=== PATIENT | male | born 1950 | race Caucasian/White ===

== ENCOUNTER 2017-08-11 09:48 | Inpatient (IN) | payer OTHER, MEDICARE, SELFPAY ==
[2017-08-11] VITALS (20 sets, daily range): BP systolic 119–157; BP diastolic 45–83; PULSE 94–104; RESP 14–36; TEMP 35.7–36.7; O2SAT 92–98; BMI 27.3; BMI 26.2
--- NOTE | 2017-08-11 09:52 | RAD_ITS ---
STUDY: X-RAY CHEST REASON FOR EXAM: Male, 67 years old. Cough TECHNIQUE: Single AP portable view of the chest. COMPARISON: None. FINDINGS: There are interstitial fibrotic changes of the lungs. There is no demonstrated pleural abnormality. Normal size heart. Normal mediastinum and lara. Normal visualized pulmonary arteries. Normal visualized aortic arch and descending thoracic aorta. Normal visualized thoracic spine. Normal visualized ribs, clavicles, and shoulders. There is no demonstrated abnormality of the visualized soft tissue structures of the upper abdomen. RAD/Chest 1 View (Portable) IMPRESSION: Chronic interstitial changes, no superimposed acute pulmonary process Electronically Signed: Karel Hook MD at 11:18 EST , Service support ,
--- NOTE | 2017-08-11 09:52 | EKG12_ITS ---
Test Reason : ALTERED LOC Blood Pressure : / mmHG Vent. Rate : 101 BPM Atrial Rate : 101 BPM P-R Int : 140 ms QRS Dur : 098 ms QT Int : 358 ms P-R-T Axes : 052 038 201 degrees QTc Int : [address] & T wave abnormality, consider inferolateral ischemia Abnormal ECG Reconfirmed by KARLENE HALL, VIRGINIA ([id number]), editor newspaper KENDRA MONTEMAYOR ([id number]) on 08/19/2017 12:49:09 PM Referred By: CONY Confirmed By:VIRGINIA SOLER MD
--- NOTE | 2017-08-11 09:57 | ED.VISSUMM ---
- ER Visit Summary Date of Service: 08/11/17 Chief Complaint: Confusion, elevated blood sugar History of Present Illness: The patient is a 67 M since to the emergency department with elevated blood sugar. Patient symptoms began about 48 hours ago. states that his sugars been running in the 500s. She states that today he was still 500 but he was more confused than usual. The patient has been tachypneic. He has been a little more sluggish to respond, but he is able to understand and comprehend speech. The states this is similar to when he has had diabetic ketoacidosis before. The patient did take his morning Lantus. His repeat blood sugar was 300 by squad. He did have a low-grade fever on Saturday, but no other infectious symptoms. There has been no recent changes in his dose of medications. The patient currently denies any pain. Physical Examination: Afebrile, tachypneic, otherwise vitals unremarkable. Elderly male in no acute distress. Have resting tachypnea. The patient does answer questions appropriately. He does appear to be dehydrated. Head is normocephalic, atraumatic. Pupils are equal round reactive. Extraocular muscles are intact. Neck is supple. Heart is regular rate and rhythm. Lungs are clear. Abdomen soft, nontender, nondistended. Skin shows no rash. Neuro exam is placed no focal deficits. Test Results: Sugar at bedside was greater than 500. EKG shows sinus rhythm with some nonspecific ST changes in the lateral leads. Chest x-ray unremarkable. Screening labs do show significant hyperglycemia, anion gap, acute kidney injury, and serum ketones Emergency Department Course and Treatment: Patient does have evidence of acute DKA. His blood gas does show acidemia and decreased bicarb. He does have respiratory compensation. Patient was given multiple liters of IV fluid. His screening labs do show contraction of the blood lines. He has a decreased bicarb, elevated anion gap, acute kidney injury with uremia. He also has a serum glucose of 1154. With the patient's confusion, acidosis, uremia the patient will be admitted to the ICU. He is aggressively hydrated and started on an insulin drip. Patient was discussed with the hospitalist. Treatment Plan: [] Disposition: Admission Impression: 1. DKA 2. Acute kidney injury 3. Dehydration This note was generated with [employer] software. It may contain incorrect words, spelling, and punctuation that were not noted in review of the chart prior to signing ED Disposition - Plan for ED Patient: Chief Complaint: Hyperglycemia Referrals: Town [facility],Out of [NON-STAFF] -
[2017-08-11 10:11] LABS: Bedside Glucose > 500 mg/dL (70-110)
[2017-08-11] MEDS: 0.9% Normal Saline 1,000 ML 1000 ML IV ×2 (10:15→10:20)
[2017-08-11 10:16] LABS: Allen Test POS; Base Excess -14 mmol/L (-2 to +2); Bicarbonate 12.6 mmol/L (22-26); Blood Gas Specimen Type ART; O2 Delivery Device Room Air; PO2 90 mmHG (75-100); SITE R Radial; SO2 96 % (95-99); Time Given 1006; Total Carbon Dioxide 13 mmol/L; pCO2 26.6 mmHg (35-45); pH 7.29 (7.35-7.45)
[2017-08-11 10:36] LABS: Absolute Lymphocyte Count 1.04 X10^3/ul (0.83-4.51); Absolute Neutrophil Count 9.2 X10^3/uL (2.0-7.7); Basophil# 0.01 X10^3/uL; Basophil% 0.1 % (0-1); Hematocrit 54.8 % (40-54); Hemoglobin 18.9 g/dl (13.0-16.5); Lymphocyte # 1.04 X10^3/ul (4.0); Lymphocyte % 9.5 % (19-41); Mean Corp Hgb Conc 34.5 g/gl (32-36); Mean Corpuscular Volume 89.8 fL (80-94); Mean Platelet Vol. 10.5 fl (6.2-12.0); Monocyte# 0.67 X10^3/uL; Monocyte% 6.1 % (0-10); Neutrophil # 9.19 X10^3/uL (2.7-7.7); Platelet Count 278 K/mm3 (150-450); RBC Distribution Width CV 13.7 % (11.6-14.6); RBC Distribution Width SD 44.6 fl (35.1-43.9); White Blood Count 10.9 K/mm3 (4.4-11.0)
[2017-08-11 10:37] LABS: POSITIVE COUNT NO; POSITIVE DIFFERENTIAL NO; POSITIVE MORPHOLOGY NO
--- NOTE | 2017-08-11 10:41 | ED.RN ---
DR DONNELLY NOTIFIED OF HGB RESULTS
[2017-08-11 10:49] LABS: Bacteria 0 SEEN /hpf (None Seen); Mucous, Urine 0 SEEN /hpf (<or=2+); Red Blood Cells-Urine 0 SEEN /hpf (0-5); Squamous Epithelial Cells - UA 0 SEEN /hpf (0-5); White Blood Cells 0 SEEN /hpf (0-5)
[2017-08-11 10:50] LABS: Color, Urine Yellow (Yellow); Glucose, Dipstick 1000 mg/dl (Normal); Ketone-Dipstick 50 mg/dl (Negative); Leukocyte Esterase-Dipstick Negative /ul (Negative); Nitrite-Dipstick Negative (Negative); Occult Blood-Urine 10 /ul (Negative); Protein-Dipstick Negative (Negative); Urine Bilirubin Dipstick Negative (Negative); Urine Clarity Clear (Clear); Urine Urobilinogen Normal (Normal)
[2017-08-11 11:00] LABS: ALB/GLOB Ratio 1.1 RATIO (0.9-2.4); AST(SGOT) 7 U/L (15-37); Alanine Aminotransfer ALT/SGPT 24 U/L (16-61); Albumin, Serum 4.1 g/dL (3.2-5.0); Alkaline Phosphatase 126 U/L (45-117); Anion Gap 26 (5-15); BUN 76 mg/dL (7-18); BUN/Creat Ratio 26.3 RATIO (10-20); Calcium,Total 10.3 mg/dL (8.5-10.1); Chloride 99 mmol/L (98-107); Creatinine, Serum 2.89 mg/dL (0.70-1.30); EST Glomerular Filtration Rate 23 mL/min (>60); Est Glom Filt Rate - Afr Amer 28 mL/min (>60); Estimated Creatinine Clearance 23.34 ml/min; Globulin 3.9 g/dL (2.2-4.2); Glucose 1154 mg/dL (74-106); Potassium 3.5 mmol/L (3.5-5.1); Sodium Level 140 mmol/L (136-145)
--- NOTE | 2017-08-11 11:01 | ED.RN ---
DR DONNELLY NOTIFIED OF BLOOD GLUCOSE AND LACTIC ACID RESULTS
[2017-08-11] MEDS: Lactated Ringers 1,000 ML 999 ML IV ×2 (11:06→11:24)
--- NOTE | 2017-08-11 11:39 | ED.RN ---
[facility] TO [facility] PT. HE IS UNABLE TO TELL ME IF THEY HAVE OPEN BEDS AT THIS TIME
[2017-08-11 11:55] LABS: Bedside Glucose > 500 mg/dL (70-110)
--- NOTE | 2017-08-11 12:16 | HP.PCM_ITS ---
Problem List (1) Confusion Status: Acute (2) Generalized weakness Status: Acute History of Present Illness Date of Admission: 08/11/17 Chief Complaint: Colitis weakness, nausea, elevated blood sugar The patient is a 67 year old M was seen in the emergency room at [facility] after being brought in with confusion today and a 2 day prior history of nausea, vomiting, and generalized weakness. Patient's family' s checked his blood sugar today and noted it was in the 500 range, patient is a type II diabetic requiring insulin, he is noncompliant with his medical regimen , he gets his medical care at the [facility] and there are no previous records of the patient here at the hospital. Patient is lethargic and confused during my exam, review of systems was unable to be obtained from the patient and information was obtained from the patient's family. Evaluation in the emergency room included labs which were remarkable for a glucose of 1154, creatinine was elevated at 2.89, BUN was elevated at 76, anion gap was elevated at 26, patient had a blood gas on room air drawn, it showed a pH of 7.29, P O2 of 90, PCO2 of 26.6, and a serum acetone level was obtained which was moderate. Patient's vital signs showed a pulse of 99, blood pressure is 125/76 and he was afebrile. Patient's white blood cell count was normal at 10.9, hemoglobin was elevated at 18.9. It was felt that the patient was in DKA with metabolic encephalopathy, IV fluids were administered, patient was placed on insulin drip, and IV insulin was administered. Patient will be admitted to the ICU for further care, again patient's family were present in the room and his medical plan of care was discussed with them. Past Medical History Allergies No Known Allergies Allergy (Verified 08/11/17 09:49) Home Medications: Ambulatory Orders Medication Instructions Recorded Insulin Glargine,Hum.rec.anlog 30 unit SQ DAILY 08/11/17 [Lantus] Surgical History: noncontributory Psychiatric History: No pertinent psych hx Lives: Spouse/ Significant Other Smoking Status: Former smoker Tobacco Use: Non-smoker Alcohol: None Drugs: None - *Family History Maternal History Items: No pertinent history Paternal History Items: Heart Disease Review of Systems Comment: Of systems was unobtainable due to the patient's metabolic encephalopathy and confusion, information was obtained from the patient's family members VTE Information - Inpt Only VTE Present on Admission: No VTE Mechan Device Prophylaxis: None VTE Pharm Prophylaxis ordered?: Yes Patient Problems: Active and Suspected Problems Confusion (Acute) Generalized weakness (Acute) - Physical Exam General: Well developed, Confused, Lethargic HEENT: Atraumatic, PERRLA Oral: Dry Mucosa Neck: Supple, Negative Carotid Bruits, No Nuchal Rigidity, Trachea Midline, Thyroid Normal Size and Texture Lungs: Clear to auscultation, Normal air movement, No rhonchi, No wheeze, No rales Cardiovascular: Regular rate, Regular Rhythm, Normal S1, Normal S2, PMI Normal, Murmur - 2/6 systolic murmur is noted at the apex and right sternal border, No rub noted Abdomen: Bowel Sounds Present, Soft, Non Tender, Non-Distended, No hernias noted Extremities: No clubbing, No cyanosis, No edema, Capillary Refill Less than 3 Seconds Skin: No rashes, No breakdown Neurological: - - he responds to painful stimuli Psych/Mental Status: - - Patient is lethargic, he responds to painful stimuli, he does not verbalize Vital Signs Temp Pulse Resp BP Pulse Ox 96.8 F L 94 30 H 135/83 H 94 08/11/17 09:52 08/11/17 12:01 08/11/17 12:01 08/11/17 12:01 08/11/17 12:01 Oxygen Delivery Method Room Air Weight: 81.7 kg Body Mass Index (BMI) 27.3 Finger Stick Blood Glucose 600 Laboratory Tests Past 24 Hrs 08/11/17 08/11/17 08/11/17 10:00 10:00 10:00 WBC 10.9 RBC 6.10 Hgb 18.9 H* Hct 54.8 H MCV 89.8 MCH 31.0 MCHC 34.5 RDW 13.7 RDW Differential 44.6 H Plt Count 278 MPV 10.5 Immature Gran % (Auto) 0.300 Neut % (Auto) 84.0 H Lymph % (Auto) 9.5 L [place] % (Auto) 6.1 Eos % (Auto) 0.0 Baso % (Auto) 0.1 Absolute Neuts (auto) 9.2 H Absolute Lymphs (auto) 1.04 Total Counted Not Reportable Specimen Type Sample Site pH Bicarbonate Actual POC Total CO2 Base Excess O2 Saturation ABG pCO2 ABG pO2 Delroy Test O2 Delivery Device Blood Gas Notified Whom Blood Gas Notified Time Sodium 140 Potassium 3.5 Chloride 99 Carbon Dioxide 15.0 L Anion Gap 26 H BUN 76 H Creatinine 2.89 H Estim Creat Clear Calc 23.34 Est GFR (MDRD) Af Amer 28 L Est GFR (MDRD) Non-Af 23 L BUN/Creatinine Ratio 26.3 H Glucose 1154 H* Lactic Acid 2.0 Calcium 10.3 H Total Bilirubin 0.60 AST 7 L ALT 24 Alkaline Phosphatase 126 H Troponin I Total Protein 8.0 Albumin 4.1 Globulin 3.9 Albumin/Globulin Ratio 1.1 Urine Color Urine Clarity Urine pH Ur Specific [place] Urine Protein Urine Glucose (UA) Urine Ketones Urine Occult Blood Urine Nitrite Urine Bilirubin Urine Urobilinogen Ur Leukocyte Esterase Urine RBC Urine WBC Ur Squamous Epith Cells Urine Bacteria Urine Mucus Acetone Level 08/11/17 08/11/17 08/11/17 10:00 10:07 10:07 WBC RBC Hgb Hct MCV MCH MCHC RDW RDW Differential Plt Count MPV Immature Gran % (Auto) Neut % (Auto) Lymph % (Auto) [place] % (Auto) Eos % (Auto) Baso % (Auto) Absolute Neuts (auto) Absolute Lymphs (auto) Total Counted Specimen Type ART Sample Site R Radial pH 7.29 L Bicarbonate Actual 12.6 L POC Total CO2 13 Base Excess -14 L O2 Saturation 96 ABG pCO2 26.6 L ABG pO2 90 Delroy Test POS O2 Delivery Device Room Air Blood Gas Notified Whom ED Blood Gas Notified Time 1006 Sodium Potassium Chloride Carbon Dioxide Anion Gap BUN Creatinine Estim Creat Clear Calc Est GFR (MDRD) Af Amer Est GFR (MDRD) Non-Af BUN/Creatinine Ratio Glucose Lactic Acid Calcium Total Bilirubin AST ALT Alkaline Phosphatase Troponin I Pending Total Protein Albumin Globulin Albumin/Globulin Ratio Urine Color Urine Clarity Urine pH Ur Specific [place] Urine Protein Urine Glucose (UA) Urine Ketones Urine Occult Blood Urine Nitrite Urine Bilirubin Urine Urobilinogen Ur Leukocyte Esterase Urine RBC Urine WBC Ur Squamous Epith Cells Urine Bacteria Urine Mucus Acetone Level MODERATE H 08/11/17 10:35 WBC RBC Hgb Hct MCV MCH MCHC RDW RDW Differential Plt Count MPV Immature Gran % (Auto) Neut % (Auto) Lymph % (Auto) [place] % (Auto) Eos % (Auto) Baso % (Auto) Absolute Neuts (auto) Absolute Lymphs (auto) Total Counted Specimen Type Sample Site pH Bicarbonate Actual POC Total CO2 Base Excess O2 Saturation ABG pCO2 ABG pO2 Delroy Test O2 Delivery Device Blood Gas Notified Whom Blood Gas Notified Time Sodium Potassium Chloride Carbon Dioxide Anion Gap BUN Creatinine Estim Creat Clear Calc Est GFR (MDRD) Af Amer Est GFR (MDRD) Non-Af BUN/Creatinine Ratio Glucose Lactic Acid Calcium Total Bilirubin AST ALT Alkaline Phosphatase Troponin I Total Protein Albumin Globulin Albumin/Globulin Ratio Urine Color Yellow Urine Clarity Clear Urine pH 6.0 Ur Specific [place] 1.010 Urine Protein Negative Urine Glucose (UA) 1000 H Urine Ketones 50 H Urine Occult Blood 10 H Urine Nitrite Negative Urine Bilirubin Negative Urine Urobilinogen Normal Ur Leukocyte Esterase Negative Urine RBC 0 SEEN Urine WBC 0 SEEN Ur Squamous Epith Cells 0 SEEN Urine Bacteria 0 SEEN Urine Mucus 0 SEEN Acetone Level POC Glucose 08/11/17 08/11/17 11:37 10:04 POC Glucose > 500 H* > 500 H* Assessment/Plan Active and Suspected Problems Confusion (Acute) Generalized weakness (Acute) #1 DKA with uncontrolled type 2 diabetes-patient will be admitted ICU, he will receive IV fluids and be maintained on an insulin drip, labs will be monitored, critical care will see patient, cardiac enzymes series will be cycled #2 metabolic encephalopathy secondary to #1 #3 noncompliance with medical regimen #4 probable acute kidney injury versus chronic kidney disease-no labs available for comparison, recheck labs #5 diabetic vascular eye disease #6 heart murmur-I feel the patient probably has mitral regurg, echocardiogram will be obtained #7 EKG abnormality indicating probable left ventricular strain pattern-again cardiac enzymes will be cycled and patient will have an echocardiogram Code Visit Inpatient E&M: 34935 Init Hosp L3
[2017-08-11 12:21] LABS: Bedside Glucose > 500 mg/dL (70-110)
[2017-08-11] MEDS: 0.9% Normal Saline 1,000 ML 500 ML IV ×2 (13:15→15:28)
[2017-08-11 13:21] LABS: Bedside Glucose > 500 mg/dL (70-110)
[2017-08-11 13:38] LABS: Anion Gap 20 (5-15); BUN 65 mg/dL (7-18); BUN/Creat Ratio 26.9 RATIO (10-20); Calcium,Total 9.1 mg/dL (8.5-10.1); Chloride 114 mmol/L (98-107); Creatinine, Serum 2.42 mg/dL (0.70-1.30); EST Glomerular Filtration Rate 28 mL/min (>60); Est Glom Filt Rate - Afr Amer 34 mL/min (>60); Estimated Creatinine Clearance 27.87 ml/min; Glucose 728 mg/dL (74-106); Magnesium 3.2 mg/dL (1.6-2.6); Potassium 2.3 mmol/L (3.5-5.1); Sodium Level 151 mmol/L (136-145)
[2017-08-11 14:12] LABS: Reflex Lactate? Y
[2017-08-11 14:31] LABS: Bedside Glucose > 500 mg/dL (70-110)
[2017-08-11 14:36] LABS: M R Staph aureus DNA By PCR Negative (Negative); Probe Check PASS; Specimen Processing Control PASS
[2017-08-11 15:36] LABS: Bedside Glucose > 500 mg/dL (70-110)
[2017-08-11 16:46] LABS: Bedside Glucose 489 mg/dL (70-110)
[2017-08-11] MEDS: 0.9% Normal Saline 1,000 ML 175 ML IV (17:27)
[2017-08-11 17:30] LABS: Lactic Acid 1.2 mmol/L (0.4-2.0)
[2017-08-11 17:37] LABS: Anion Gap 16 (5-15); BUN 53 mg/dL (7-18); BUN/Creat Ratio 28.3 RATIO (10-20); Calcium,Total 8.6 mg/dL (8.5-10.1); Chloride 121 mmol/L (98-107); Creatinine, Serum 1.87 mg/dL (0.70-1.30); EST Glomerular Filtration Rate 38 mL/min (>60); Est Glom Filt Rate - Afr Amer 46 mL/min (>60); Estimated Creatinine Clearance 36.07 ml/min; Glucose 525 mg/dL (74-106); Potassium 3.1 mmol/L (3.5-5.1); Sodium Level 157 mmol/L (136-145)
[2017-08-11 17:46] LABS: Bedside Glucose 425 mg/dL (70-110)
[2017-08-11 18:31] LABS: Bedside Glucose 418 mg/dL (70-110)
[2017-08-11 20:36] LABS: Bedside Glucose 334 mg/dL (70-110)
[2017-08-11 20:36] LABS: Bedside Glucose 408 mg/dL (70-110)
[2017-08-11] MEDS: 0.9% NaCl Peripheral Flush Adult/Peds IV (21:34)
[2017-08-11 22:23] LABS: BUN 41 mg/dL (7-18); Creatinine, Serum 1.49 mg/dL (0.70-1.30); Glucose 334 mg/dL (74-106)
[2017-08-11 22:24] LABS: Anion Gap 11 (5-15); BUN/Creat Ratio 27.5 RATIO (10-20); Calcium,Total 7.8 mg/dL (8.5-10.1); Chloride 128 mmol/L (98-107); EST Glomerular Filtration Rate 50 mL/min (>60); Est Glom Filt Rate - Afr Amer 60 mL/min (>60); Estimated Creatinine Clearance 45.27 ml/min; Potassium 3.3 mmol/L (3.5-5.1); Sodium Level 161 mmol/L (136-145)
[2017-08-11] MEDS: 0.45% Normal Saline 1,000 ML 125 ML IV (22:43)
[2017-08-11 23:37] LABS: Bedside Glucose 363 mg/dL (70-110)
[2017-08-11 23:37] LABS: Bedside Glucose 346 mg/dL (70-110)
[2017-08-12] VITALS (14 sets, daily range): BP systolic 130–172; BP diastolic 58–87; PULSE 98–118; RESP 17–28; TEMP 36.7–37.8; O2SAT 92–94
[2017-08-12 00:36] LABS: Bedside Glucose 277 mg/dL (70-110)
[2017-08-12 00:36] LABS: Bedside Glucose 258 mg/dL (70-110)
[2017-08-12 01:09] LABS: Anion Gap 11 (5-15); BUN 38 mg/dL (7-18); BUN/Creat Ratio 28.4 RATIO (10-20); Calcium,Total 7.8 mg/dL (8.5-10.1); Chloride 122 mmol/L (98-107); Creatinine, Serum 1.34 mg/dL (0.70-1.30); EST Glomerular Filtration Rate 56 mL/min (>60); Est Glom Filt Rate - Afr Amer 68 mL/min (>60); Estimated Creatinine Clearance 50.34 ml/min; Glucose 265 mg/dL (74-106); Potassium 3.3 mmol/L (3.5-5.1); Sodium Level 155 mmol/L (136-145)
[2017-08-12] MEDS: POTASSIUM CHLORIDE IV (01:36)
[2017-08-12] MEDS: DEXTROSE 5% IV (01:36)
[2017-08-12] MEDS: WATER IV (01:36)
[2017-08-12 03:36] LABS: Bedside Glucose 275 mg/dL (70-110)
[2017-08-12 03:36] LABS: Bedside Glucose 244 mg/dL (70-110)
[2017-08-12 03:36] LABS: Bedside Glucose 242 mg/dL (70-110)
[2017-08-12 05:01] LABS: Absolute Lymphocyte Count 0.55 X10^3/ul (0.83-4.51); Absolute Neutrophil Count 4.3 X10^3/uL (2.0-7.7); Eosinophil# 0.04 X10^3/uL; Eosinophils% 0.8 % (0-5); Hematocrit 43.6 % (40-54); Hemoglobin 15.7 g/dl (13.0-16.5); Lymphocyte # 0.55 X10^3/ul (4.0); Lymphocyte % 10.5 % (19-41); Mean Corpuscular Hgb 30.6 pg (27.0-32.0); Mean Platelet Vol. 9.7 fl (6.2-12.0); Monocyte# 0.38 X10^3/uL; Monocyte% 7.2 % (0-10); Neutrophil # 4.28 X10^3/uL (2.7-7.7); Neutrophil % 81.3 % (47-70); Platelet Count 192 K/mm3 (150-450); RBC Distribution Width CV 13.8 % (11.6-14.6); RBC Distribution Width SD 42.8 fl (35.1-43.9); Red Blood Count 5.13 M/mm3 (4.6-6.2); White Blood Count 5.3 K/mm3 (4.4-11.0)
[2017-08-12 05:08] LABS: Anion Gap 8 (5-15); BUN 34 mg/dL (7-18); BUN/Creat Ratio 23.3 RATIO (10-20); Calcium,Total 8.2 mg/dL (8.5-10.1); Chloride 124 mmol/L (98-107); Creatinine, Serum 1.46 mg/dL (0.70-1.30); EST Glomerular Filtration Rate 51 mL/min (>60); Est Glom Filt Rate - Afr Amer 62 mL/min (>60); Glucose 298 mg/dL (74-106); Potassium 4.1 mmol/L (3.5-5.1); Sodium Level 158 mmol/L (136-145)
[2017-08-12 05:09] LABS: Differential Indicated SCAN CRITERIA MET; POSITIVE COUNT NO; POSITIVE DIFFERENTIAL YES; POSITIVE MORPHOLOGY NO
[2017-08-12] MEDS: CHLORHEXIDINE GLUC 2% CLOTH 1 EACH TOWELETTE TOPICAL (05:47)
--- NOTE | 2017-08-12 05:55 | ECHOD_ITS ---
Reason For Study: Murmur Procedure This was a 2D Doppler, Color Flow transthoracic echocardiogram. Exam performed portable in ICU/CCU. Left Ventricle Normal LV size. Mild concentric left ventricular hypertrophy. Left ventricular systolic function is normal. The estimated ejection fraction is 65 %. Transmitral and pulmonary venous doppler flow suggestive of impaired relaxation of left ventricle. Transmitral diastolic flow velocities suggest mild (stage 1) diastolic dysfunction (reversed pattern). Right Ventricle Normal RV size. Normal systolic function. Atria Normal left atrium. Normal right atrium. Mitral Valve Normal mitral valve. Tricuspid Valve Normal tricuspid valve. Aortic Valve Trisinus/trileaflet aortic valve. Mild focal aortic valve calcification. Pulmonic Valve Normal pulmonic valve. Great Vessels Normal aortic root. The pulmonary artery is normal size. Normal inferior vena cava. Pericardium/Pleural No pericardial effusion. MMode/2D Measurements & Calculations LVIDd: 3.4 cm IVSd: 1.2 cm Ao root diam: 3.5 cm LVIDs: 2.3 cm LVPWd: 1.2 cm LA dimension: 3.4 cm FS: 33.3 % LAV(MOD-bp): 24.9 ml LA A4 area: 11.5 cm2 RA A4 area: 8.9 cm2 LAV(MOD-bp) Indexed: 12.9 ml/m2 LAV(MOD-sp2): 21.9 ml LAV(MOD-sp4): 22.5 ml Time Measurements MV dec time: 0.05 sec Doppler Measurements & Calculations MV E max mahad: 70.4 cm/sec Lat Peak E' Mahad: 4.2 cm/sec Med Peak E' Mahad: 3.7 cm/sec MV A max mahad: 157.8 cm/sec E/E' lat: 16.8 E/E' med: 18.8 MV E/A: 0.45 MV V2 max: 150.8 cm/sec MV P1/2t max mahad: 94.5 cm/sec Ao V2 max: 193.6 cm/sec MV max P.1 mmHg MV P1/2t: 58.6 msec Ao max P.0 mmHg MV V2 mean: 90.4 cm/sec MV dec slope: 472.1 cm/sec2 Ao V2 mean: 147.4 cm/sec MV mean P.7 mmHg MVA(P1/2t): 3.8 cm2 Ao mean P.5 mmHg MV V2 VTI: 26.1 cm Ao V2 VTI: 29.4 cm LV V1 max: 174.7 cm/sec PA V2 max: 131.6 cm/sec LV V1 max P.2 mmHg Interpretation Summary Normal LV size. Mild concentric left ventricular hypertrophy. The estimated ejection fraction is 65 %. Left ventricular systolic function is normal. Transmitral diastolic flow velocities suggest mild (stage 1) diastolic dysfunction (reversed pattern). Ordering Physician: Wai Alfaro Referring Physician: [facility] Performed By: Elyssa Cannon, JAZMINE, RVT
[2017-08-12 06:34] LABS: Differential Comment SCANNED
--- NOTE | 2017-08-12 08:15 | NURSING ---
Echo in progress
[2017-08-12] MEDS: Enoxaparin 30 MG/0.3 ML Syringe SC (09:23)
[2017-08-12 09:36] LABS: Bedside Glucose 247 mg/dL (70-110)
--- NOTE | 2017-08-12 10:13 | CASEMGMT ---
DC PLAN: undetermined. Pt has been living @ home with who is able to assist him. He ambulated with cane, drives to appointments. -Pt goes to [place] [facility] [place] for physician visits and prescriptions. -[facility]- [facility] , [facility] - requested new blood glucose monitoring machine.Will need script for this. - states they will fill new prescriptions locally, then [facility]. Next appointment is Saturday. -PT/OT evaluations ordered. Will continue to follow and assist with dc planning. Andrade MULLINSN RN ACM
[2017-08-12] MEDS: Dext 5%-0.45% NS 1,000 ML 100 ML IV ×2 (10:50→21:27)
[2017-08-12 11:46] LABS: Bedside Glucose 240 mg/dL (70-110)
[2017-08-12 17:36] LABS: Bedside Glucose 173 mg/dL (70-110)
--- NOTE | 2017-08-12 19:20 | PCM.PROGNOTE ---
Patient Problems: Active and Suspected Problems Confusion (Acute) Generalized weakness (Acute) Subjective: Patient was seen and examined today in the ICU, he remains confused and he did not pass his swallowing eval. Speech therapy will be seeing the patient. Patient was moved out to the floor today, blood sugars are better, creatinine still elevated however and his sodium is elevated. I placed him on D5 half-normal saline. I had a talk with his who is in the room this morning and she understands the medical plan. - Physical Exam General: No apparent distress, Well developed, Well nourished, Lethargic HEENT: Atraumatic, PERRLA Oral: Moist Mucosa Neck: Supple, No Nuchal Rigidity, Trachea Midline, Thyroid Normal Size and Texture Lungs: Clear to auscultation, Normal air movement, No rhonchi, No wheeze, No rales Cardiovascular: Regular rate, Regular Rhythm, Normal S1, Normal S2, No Ectopic Activity, PMI Normal, Murmur - 1/6 systolic murmur is noted at the apex, No rub noted, No Gallop Abdomen: Bowel Sounds Present, Soft, Non Tender, Non-Distended, No hernias noted Extremities: No clubbing, No cyanosis, No edema, Capillary Refill Less than 3 Seconds Skin: No rashes, No breakdown Neurological: Cranial nerves II-XII grossly intact, Neuro grossly intact Psych/Mental Status: - - Patient is alert, he does not respond to verbal stimuli with intelligible sentences Vital Signs Temp Pulse Resp BP Pulse Ox 99.1 F 98 18 146/74 H 94 08/12/17 15:50 08/12/17 15:50 08/12/17 15:50 08/12/17 15:50 08/12/17 15:50 Oxygen Delivery Method Room Air Weight: 80.6 kg Body Mass Index (BMI) 26.2 Finger Stick Blood Glucose 242 Intake and Output for Last 24 Hours 08/10/17 08/11/17 08/12/17 23:59 23:59 23:59 Intake Total 2454 / 2454 3062.9 / 3062.9 Output Total 1500 / 1500 550 / 550 Balance 954 / 954 2512.9 / 2512.9 Laboratory Tests Past 24 Hrs 08/11/17 08/11/17 08/12/17 21:58 21:58 00:50 WBC RBC Hgb Hct MCV MCH MCHC RDW RDW Differential Plt Count MPV Immature Gran % (Auto) Neut % (Auto) Lymph % (Auto) [place] % (Auto) Eos % (Auto) Baso % (Auto) Absolute Neuts (auto) Absolute Lymphs (auto) Total Counted Differential Comment Sodium 161 H* 155 H Potassium 3.3 L 3.3 L Chloride 128 H* 122 H Carbon Dioxide 22.0 22.0 Anion Gap 11 11 BUN 41 H 38 H Creatinine 1.49 H 1.34 H Estim Creat Clear Calc 45.27 50.34 Est GFR (MDRD) Af Amer 60 68 Est GFR (MDRD) Non-Af 50 L 56 L BUN/Creatinine Ratio 27.5 H 28.4 H Glucose 334 H 265 H Calcium 7.8 L 7.8 L Troponin I 0.06 08/12/17 08/12/17 04:45 04:45 WBC 5.3 RBC 5.13 Hgb 15.7 Hct 43.6 MCV 85.0 MCH 30.6 MCHC 36.0 RDW 13.8 RDW Differential 42.8 Plt Count 192 MPV 9.7 Immature Gran % (Auto) 0.200 Neut % (Auto) 81.3 H Lymph % (Auto) 10.5 L [place] % (Auto) 7.2 Eos % (Auto) 0.8 Baso % (Auto) 0.0 Absolute Neuts (auto) 4.3 Absolute Lymphs (auto) 0.55 L Total Counted Not Reportable Differential Comment SCANNED Sodium 158 H Potassium 4.1 Chloride 124 H Carbon Dioxide 26.0 Anion Gap 8 BUN 34 H Creatinine 1.46 H Estim Creat Clear Calc 46.20 Est GFR (MDRD) Af Amer 62 Est GFR (MDRD) Non-Af 51 L BUN/Creatinine Ratio 23.3 H Glucose 298 H Calcium 8.2 L Troponin I POC Glucose 08/12/17 08/12/17 08/12/17 17:20 11:26 09:18 POC Glucose 173 H 240 H 247 H 08/12/17 08/12/17 08/12/17 03:30 02:36 01:32 POC Glucose 242 H 275 H 244 H 08/12/17 08/11/17 08/11/17 00:27 23:33 22:25 POC Glucose 258 H 277 H 363 H 08/11/17 08/11/17 08/11/17 21:32 20:28 19:39 POC Glucose 346 H 334 H 408 H Assessment/Plan Active and Suspected Problems Confusion (Acute) Generalized weakness (Acute) #1 DKA with uncontrolled type 2 diabetes-DKA has resolved at this time, patient will be moved to [facility] 2, IV fluids will continue #2 metabolic encephalopathy secondary to #1 - continue to monitor #3 noncompliance with medical regimen #4 probable acute kidney injury versus chronic kidney disease-no labs available for comparison, recheck labs #5 diabetic vascular eye disease #6 heart murmur-this is probably a flow murmur, patient's echocardiogram does not show any valvular heart disease. His ejection fraction is preserved #7 EKG abnormality indicating probable left ventricular strain pattern-patient's cardiac enzymes peaked on the fourth enzyme at 0.06, I do not believe he has had a non-STEMI Summary: This 67-year-old white male who is noncompliant with his diabetic care was admitted with DKA, he also has a metabolic encephalopathy presently and is unable to take orals, patient's creatinine is still elevated-it is hard to determine what his normal creatinine is as the patient goes to the [facility] for his care. Patient will need to be placed on a statin, lisinopril, and short acting insulin in addition to basal insulin when he is discharged home Code Visit Inpatient E&M: 88275 [facility] Hosp L2
--- NOTE | 2017-08-12 19:28 | PN_ITS ---
Patient Problems: Active and Suspected Problems Confusion (Acute) Generalized weakness (Acute) Subjective: Patient was seen and examined today in the ICU, he remains confused and he did not pass his swallowing eval. Speech therapy will be seeing the patient. Patient was moved out to the floor today, blood sugars are better, creatinine still elevated however and his sodium is elevated. I placed him on D5 half- normal saline. I had a talk with his who is in the room this morning and she understands the medical plan. - Physical Exam General: No apparent distress, Well developed, Well nourished, Lethargic HEENT: Atraumatic, PERRLA Oral: Moist Mucosa Neck: Supple, No Nuchal Rigidity, Trachea Midline, Thyroid Normal Size and Texture Lungs: Clear to auscultation, Normal air movement, No rhonchi, No wheeze, No rales Cardiovascular: Regular rate, Regular Rhythm, Normal S1, Normal S2, No Ectopic Activity, PMI Normal, Murmur - 1/6 systolic murmur is noted at the apex, No rub noted, No Gallop Abdomen: Bowel Sounds Present, Soft, Non Tender, Non-Distended, No hernias noted Extremities: No clubbing, No cyanosis, No edema, Capillary Refill Less than 3 Seconds Skin: No rashes, No breakdown Neurological: Cranial nerves II-XII grossly intact, Neuro grossly intact Psych/Mental Status: - - Patient is alert, he does not respond to verbal stimuli with intelligible sentences Vital Signs Temp Pulse Resp BP Pulse Ox 99.1 F 98 18 146/74 H 94 08/12/17 15:50 08/12/17 15:50 08/12/17 15:50 08/12/17 15:50 08/12/17 15:50 Oxygen Delivery Method Room Air Weight: 80.6 kg Body Mass Index (BMI) 26.2 Finger Stick Blood Glucose 242 Intake and Output for Last 24 Hours 08/10/17 08/11/17 08/12/17 23:59 23:59 23:59 Intake Total 2454 / 2454 3062.9 / 3062.9 Output Total 1500 / 1500 550 / 550 Balance 954 / 954 2512.9 / 2512.9 Laboratory Tests Past 24 Hrs 08/11/17 08/11/17 08/12/17 21:58 21:58 00:50 WBC RBC Hgb Hct MCV MCH MCHC RDW RDW Differential Plt Count MPV Immature Gran % (Auto) Neut % (Auto) Lymph % (Auto) Lewis % (Auto) Eos % (Auto) Baso % (Auto) Absolute Neuts (auto) Absolute Lymphs (auto) Total Counted Differential Comment Sodium 161 H* 155 H Potassium 3.3 L 3.3 L Chloride 128 H* 122 H Carbon Dioxide 22.0 22.0 Anion Gap 11 11 BUN 41 H 38 H Creatinine 1.49 H 1.34 H Estim Creat Clear Calc 45.27 50.34 Est GFR (MDRD) Af Amer 60 68 Est GFR (MDRD) Non-Af 50 L 56 L BUN/Creatinine Ratio 27.5 H 28.4 H Glucose 334 H 265 H Calcium 7.8 L 7.8 L Troponin I 0.06 08/12/17 08/12/17 04:45 04:45 WBC 5.3 RBC 5.13 Hgb 15.7 Hct 43.6 MCV 85.0 MCH 30.6 MCHC 36.0 RDW 13.8 RDW Differential 42.8 Plt Count 192 MPV 9.7 Immature Gran % (Auto) 0.200 Neut % (Auto) 81.3 H Lymph % (Auto) 10.5 L Lewis % (Auto) 7.2 Eos % (Auto) 0.8 Baso % (Auto) 0.0 Absolute Neuts (auto) 4.3 Absolute Lymphs (auto) 0.55 L Total Counted Not Reportable Differential Comment SCANNED Sodium 158 H Potassium 4.1 Chloride 124 H Carbon Dioxide 26.0 Anion Gap 8 BUN 34 H Creatinine 1.46 H Estim Creat Clear Calc 46.20 Est GFR (MDRD) Af Amer 62 Est GFR (MDRD) Non-Af 51 L BUN/Creatinine Ratio 23.3 H Glucose 298 H Calcium 8.2 L Troponin I POC Glucose 08/12/17 08/12/17 08/12/17 17:20 11:26 09:18 POC Glucose 173 H 240 H 247 H 08/12/17 08/12/17 08/12/17 03:30 02:36 01:32 POC Glucose 242 H 275 H 244 H 08/12/17 08/11/17 08/11/17 00:27 23:33 22:25 POC Glucose 258 H 277 H 363 H 08/11/17 08/11/17 08/11/17 21:32 20:28 19:39 POC Glucose 346 H 334 H 408 H Assessment/Plan Active and Suspected Problems Confusion (Acute) Generalized weakness (Acute) #1 DKA with uncontrolled type 2 diabetes-DKA has resolved at this time, patient will be moved to [facility] 2, IV fluids will continue #2 metabolic encephalopathy secondary to #1 - continue to monitor #3 noncompliance with medical regimen #4 probable acute kidney injury versus chronic kidney disease-no labs available for comparison, recheck labs #5 diabetic vascular eye disease #6 heart murmur-this is probably a flow murmur, patient's echocardiogram does not show any valvular heart disease. His ejection fraction is preserved #7 EKG abnormality indicating probable left ventricular strain pattern-patient' s cardiac enzymes peaked on the fourth enzyme at 0.06, I do not believe he has had a non-STEMI Summary: This 67-year-old white male who is noncompliant with his diabetic care was admitted with DKA, he also has a metabolic encephalopathy presently and is unable to take orals, patient's creatinine is still elevated-it is hard to determine what his normal creatinine is as the patient goes to the [facility] for his care. Patient will need to be placed on a statin, lisinopril, and short acting insulin in addition to basal insulin when he is discharged home Code Visit Inpatient E&M: [id number] [facility] Hosp L2
[2017-08-12 21:31] LABS: Bedside Glucose 150 mg/dL (70-110)
[2017-08-13 00:06] LABS: Bedside Glucose 174 mg/dL (70-110)
[2017-08-13 01:55] VITALS: BP 153/83; PULSE 89; RESP 18; TEMP 37.3; O2SAT 93
[2017-08-13 05:36] LABS: Bedside Glucose 190 mg/dL (70-110)
[2017-08-13 06:26] LABS: Anion Gap 6 (5-15); BUN 22 mg/dL (7-18); BUN/Creat Ratio 24.2 RATIO (10-20); Calcium,Total 8.8 mg/dL (8.5-10.1); Chloride 125 mmol/L (98-107); Creatinine, Serum 0.91 mg/dL (0.70-1.30); EST Glomerular Filtration Rate 88 mL/min (>60); Est Glom Filt Rate - Afr Amer 106 mL/min (>60); Estimated Creatinine Clearance 74.12 ml/min; Glucose 175 mg/dL (74-106); Potassium 3.2 mmol/L (3.5-5.1); Sodium Level 162 mmol/L (136-145)
[2017-08-13 09:21] VITALS: BP 149/65; PULSE 93; RESP 20; TEMP 37.2; O2SAT 92
[2017-08-13] MEDS: Enoxaparin 30 MG/0.3 ML Syringe SC (09:32)
[2017-08-13 09:41] LABS: Bedside Glucose 266 mg/dL (70-110)
--- NOTE | 2017-08-13 10:15 | PCM.PN.HOSP ---
Patient Problems: Active and Suspected Problems DKA (diabetic ketoacidoses) (Acute) Hypernatremia (Acute) Subjective: Feeling good. No complaints. Vitals/I&O's: Vital Signs Temp Pulse Resp BP Pulse Ox 37.2 C 93 20 H 149/65 H 92 08/13/17 09:21 08/13/17 09:21 08/13/17 09:21 08/13/17 09:21 08/13/17 09:21 Oxygen Delivery Method Room Air Weight: 80.6 kg Body Mass Index (BMI) 26.2 Finger Stick Blood Glucose 242 Intake and Output for Last 24 Hours 08/11/17 08/12/17 08/13/17 23:59 23:59 23:59 Intake Total 2454 / 2454 3062.9 / 3062.9 1185 / 1185 Output Total 1500 / 1500 550 / 550 500 / 500 Balance 954 / 954 2512.9 / 2512.9 685 / 685 General: Alert, Cooperative, No apparent distress HEENT: Atraumatic, Normocephalic Neck: No Nodes, Thyroid Normal Size and Texture Lungs: Clear to auscultation, Normal air movement, No rhonchi, No wheeze Cardiovascular: Regular rate, Regular Rhythm, Normal S1, Normal S2, No murmurs Abdomen: Bowel Sounds Present, Soft, Non Tender, Non-Distended Extremities: No edema, No Calf Tenderness Skin: No rashes, No breakdown Musculoskeletal: No Tenderness to Palpation of Joints or Extremities, No Muscle Wasting Neurological: Neuro grossly intact, Muscle tone normal Psych/Mental Status: Normal Affect, Appropriate Laboratory Results 08/12/17 11:26: POC Glucose 240 H 08/12/17 17:20: POC Glucose 173 H 08/12/17 21:24: POC Glucose 150 H 08/12/17 23:59: POC Glucose 174 H 08/13/17 05:28: POC Glucose 190 H 08/13/17 05:30: Sodium 162 H*, Potassium 3.2 L, Chloride 125 H, Carbon Dioxide 31.0, Anion Gap 6, BUN 22 H, Creatinine 0.91, Estim Creat Clear Calc 74.12, Est GFR (MDRD) Af Amer 106, Est GFR (MDRD) Non-Af 88, BUN/Creatinine Ratio 24.2 H, Glucose 175 H, Calcium 8.8 08/13/17 09:31: POC Glucose 266 H Current Medications Dextrose (D50w Syringe) 0 gm IV X1 PRN; Protocol PRN Reason: Hypoglycemia Enoxaparin Sodium (Lovenox) 30 mg SC DAILY@1000 [facility] Last Admin: 08/13/17 09:32 Dose: 30 mg Glucagon () 1 mg IM .X1 PRN PRN Reason: Hypoglycemia Dextrose () 1,000 mls @ 150 mls/hr IV .Q6H40M BE[facility] Insulin Aspart (Novolog Flexpen ([facility])) 0 units SC Q6 [facility] PRN Reason: Protocol Last Admin: 08/13/17 05:30 Dose: 2 units Insulin Detemir (Levemir ([facility])) 15 units SC BID [facility] Last Admin: 08/13/17 09:32 Dose: 15 units Morphine Sulfate (Morphine) 2 - 4 mg IV Q4H PRN PRN PRN Reason: MOD-SEVERE PAIN (4-10/10) Ondansetron HCl (Zofran) 4 mg IV Q8H PRN PRN PRN Reason: NAUSEA Sodium Chloride () 5 - 30 ml IV UD PRN PRN Reason: SALINE FLUSH Last Admin: 08/11/17 21:34 Dose: 20 ml Assessment/Plan Active and Suspected Problems DKA (diabetic ketoacidoses) (Acute) Hypernatremia (Acute) 1. Diabetic ketoacidosis Resolved Patient back on Levemir instead of 30 units daily is on 15 twice daily. Additionally patient is on sliding scale insulin. Sugars are in the 200s. Will monitor and make further adjustments as patient diet has been advanced. 2. Hypernatremia Patient's initial sodium was 140 but this may been artificially low given the hyperglycemia he experience. Subsequently, spent 150s and now at its highest at 162. Patient needs to be on hypotonic IV fluids for now. Going to DC the D5 half-normal saline and start him on D5 water. 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 I do not have any prior lab work to compare to. 3. Dysphagia On nectar thickened liquids by hawk. Continue with speech therapy. 4. DVT prophylaxis with low molecular weight heparin. Code Visit Inpatient E&M: [id number] [facility] Hosp L3
--- NOTE | 2017-08-13 10:20 | PN_ITS ---
Patient Problems: Active and Suspected Problems DKA (diabetic ketoacidoses) (Acute) Hypernatremia (Acute) Subjective: Feeling good. No complaints. Vitals/I&O's: Vital Signs Temp Pulse Resp BP Pulse Ox 37.2 C 93 20 H 149/65 H 92 08/13/17 09:21 08/13/17 09:21 08/13/17 09:21 08/13/17 09:21 08/13/17 09:21 Oxygen Delivery Method Room Air Weight: 80.6 kg Body Mass Index (BMI) 26.2 Finger Stick Blood Glucose 242 Intake and Output for Last 24 Hours 08/11/17 08/12/17 08/13/17 23:59 23:59 23:59 Intake Total 2454 / 2454 3062.9 / 3062.9 1185 / 1185 Output Total 1500 / 1500 550 / 550 500 / 500 Balance 954 / 954 2512.9 / 2512.9 685 / 685 General: Alert, Cooperative, No apparent distress HEENT: Atraumatic, Normocephalic Neck: No Nodes, Thyroid Normal Size and Texture Lungs: Clear to auscultation, Normal air movement, No rhonchi, No wheeze Cardiovascular: Regular rate, Regular Rhythm, Normal S1, Normal S2, No murmurs Abdomen: Bowel Sounds Present, Soft, Non Tender, Non-Distended Extremities: No edema, No Calf Tenderness Skin: No rashes, No breakdown Musculoskeletal: No Tenderness to Palpation of Joints or Extremities, No Muscle Wasting Neurological: Neuro grossly intact, Muscle tone normal Psych/Mental Status: Normal Affect, Appropriate Laboratory Results 08/12/17 11:26: POC Glucose 240 H 08/12/17 17:20: POC Glucose 173 H 08/12/17 21:24: POC Glucose 150 H 08/12/17 23:59: POC Glucose 174 H 08/13/17 05:28: POC Glucose 190 H 08/13/17 05:30: Sodium 162 H*, Potassium 3.2 L, Chloride 125 H, Carbon Dioxide 31.0, Anion Gap 6, BUN 22 H, Creatinine 0.91, Estim Creat Clear Calc 74.12, Est GFR (MDRD) Af Amer 106, Est GFR (MDRD) Non-Af 88, BUN/Creatinine Ratio 24.2 H, Glucose 175 H, Calcium 8.8 08/13/17 09:31: POC Glucose 266 H Current Medications Dextrose (D50w Syringe) 0 gm IV X1 PRN; Protocol PRN Reason: Hypoglycemia Enoxaparin Sodium (Lovenox) 30 mg SC DAILY@1000 [facility] Last Admin: 08/13/17 09:32 Dose: 30 mg Glucagon () 1 mg IM .X1 PRN PRN Reason: Hypoglycemia Dextrose () 1,000 mls @ 150 mls/hr IV .Q6H40M BE[facility] Insulin Aspart (Novolog Flexpen ([facility])) 0 units SC Q6 BE[facility] PRN Reason: Protocol Last Admin: 08/13/17 05:30 Dose: 2 units Insulin Detemir (Levemir ([facility])) [address] [facility] Last Admin: 08/13/17 09:32 Dose: 15 units Morphine Sulfate (Morphine) 2 - 4 mg IV Q4H PRN PRN PRN Reason: MOD-SEVERE PAIN (4-10/10) Ondansetron HCl (Zofran) 4 mg IV Q8H PRN PRN PRN Reason: NAUSEA Sodium Chloride () 5 - 30 ml IV UD PRN PRN Reason: SALINE FLUSH Last Admin: 08/11/17 21:34 Dose: 20 ml Assessment/Plan Active and Suspected Problems DKA (diabetic ketoacidoses) (Acute) Hypernatremia (Acute) 1. Diabetic ketoacidosis * Resolved * Patient back on Levemir instead of 30 units daily is on 15 twice daily. Additionally patient is on sliding scale insulin. * Sugars are in the 200s. Will monitor and make further adjustments as patient diet has been advanced. 2. Hypernatremia * Patient's initial sodium was 140 but this may been artificially low given the hyperglycemia he experience. Subsequently, spent 150s and now at its highest at 162. * Patient needs to be on hypotonic IV fluids for now. Going to DC the D5 half- normal saline and start him on D5 water. 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 I do not have any prior lab work to compare to. 3. Dysphagia * On nectar thickened liquids by hawk. Continue with speech therapy. 4. DVT prophylaxis with low molecular weight heparin. Code Visit Inpatient E&M: [id number] [facility] Hosp L3
--- NOTE | 2017-08-13 10:26 | CASEMGMT ---
Social Work Met with pt and in pt room to discuss d/c plan. Pt sleeping throughout conversation but willing to complete assessment. Therapy notes indicate pt would benefit from short term SNF placement. PT lives in a one story home with his with 2 steps into home. 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 Pt denies needs for SNF placement. SW provided information on home health services as well as outpt therapy. PT continues to deny need for addition services at this time stating family has taken care of pt in the past and are aware pt will need assistance and she feels they will be able to provide for needs at home adequately. SW informed pt that if she changes her mind and would like SNF or assistance in the home, SW is available to assist with setting up services. HAIM Rowan
[2017-08-13] MEDS: Dext 5%-0.45% NS 1,000 ML 100 ML IV (11:01)
[2017-08-13 11:42] LABS: Bedside Glucose 327 mg/dL (70-110)
[2017-08-13 14:34] LABS: Anion Gap 6 (5-15); BUN 20 mg/dL (7-18); BUN/Creat Ratio 21.5 RATIO (10-20); Calcium,Total 8.4 mg/dL (8.5-10.1); Chloride 122 mmol/L (98-107); Creatinine, Serum 0.93 mg/dL (0.70-1.30); EST Glomerular Filtration Rate 86 mL/min (>60); Est Glom Filt Rate - Afr Amer 103 mL/min (>60); Estimated Creatinine Clearance 72.53 ml/min; Glucose 348 mg/dL (74-106); Potassium 3.5 mmol/L (3.5-5.1); Sodium Level 157 mmol/L (136-145)
[2017-08-13 16:02] VITALS: BP 147/70; PULSE 83; RESP 18; TEMP 37.3; O2SAT 91
[2017-08-13 16:26] LABS: Bedside Glucose 282 mg/dL (70-110)
[2017-08-13 21:24] VITALS: BP 142/68; PULSE 82; RESP 18; TEMP 37.4; O2SAT 97
[2017-08-13 22:06] LABS: Bedside Glucose 436 mg/dL (70-110)
[2017-08-14 03:14] VITALS: BP 161/81; PULSE 74; RESP 18; TEMP 37.1; O2SAT 94
[2017-08-14 06:24] LABS: Absolute Lymphocyte Count 1.07 X10^3/ul (0.83-4.51); Absolute Neutrophil Count 7.4 X10^3/uL (2.0-7.7); Basophil# 0.03 X10^3/uL; Basophil% 0.3 % (0-1); Eosinophil# 0.26 X10^3/uL; Eosinophils% 2.8 % (0-5); Hematocrit 42.4 % (40-54); Hemoglobin 14.3 g/dl (13.0-16.5); Lymphocyte # 1.07 X10^3/ul (4.0); Lymphocyte % 11.5 % (19-41); Mean Corp Hgb Conc 33.7 g/gl (32-36); Mean Corpuscular Volume 89.1 fL (80-94); Mean Platelet Vol. 9.9 fl (6.2-12.0); Monocyte# 0.56 X10^3/uL; Neutrophil # 7.35 X10^3/uL (2.7-7.7); Neutrophil % 79.3 % (47-70); Platelet Count 135 K/mm3 (150-450); RBC Distribution Width CV 14.6 % (11.6-14.6); RBC Distribution Width SD 47.5 fl (35.1-43.9); Red Blood Count 4.76 M/mm3 (4.6-6.2); White Blood Count 9.3 K/mm3 (4.4-11.0)
[2017-08-14 06:28] LABS: POSITIVE COUNT NO; POSITIVE DIFFERENTIAL NO; POSITIVE MORPHOLOGY NO
[2017-08-14 06:51] LABS: Bedside Glucose 257 mg/dL (70-110)
[2017-08-14 06:52] LABS: Anion Gap 6 (5-15); BUN 16 mg/dL (7-18); BUN/Creat Ratio 22.6 RATIO (10-20); Calcium,Total 8.2 mg/dL (8.5-10.1); Chloride 116 mmol/L (98-107); Creatinine, Serum 0.71 mg/dL (0.70-1.30); EST Glomerular Filtration Rate 117 mL/min (>60); Est Glom Filt Rate - Afr Amer 142 mL/min (>60); Estimated Creatinine Clearance 67.45 ml/min; Glucose 269 mg/dL (74-106); Potassium 3.4 mmol/L (3.5-5.1); Sodium Level 152 mmol/L (136-145); Thyroid Stim Hormone (TSH) 0.66 uIU/mL (0.358-3.74)
[2017-08-14 07:42] VITALS: BP 154/89; PULSE 83; RESP 18; TEMP 37.1; O2SAT 98
--- NOTE | 2017-08-14 08:33 | PN_ITS ---
Patient Problems: Active and Suspected Problems Hypernatremia (Acute) DKA (diabetic ketoacidoses) (Acute) Subjective: No new events nor complaints. Vitals/I&O's: Vital Signs Temp Pulse Resp BP Pulse Ox 37.1 C 74 18 161/81 H 94 08/14/17 03:14 08/14/17 03:14 08/14/17 03:14 08/14/17 03:14 08/14/17 03:14 Oxygen Delivery Method Room Air Weight: 80.6 kg Body Mass Index (BMI) 26.2 Finger Stick Blood Glucose 242 Intake and Output for Last 24 Hours 08/12/17 08/13/17 08/14/17 23:59 23:59 23:59 Intake Total 3062.9 / 3062.9 2366 / 2366 3151 / 3151 Output Total 550 / 550 500 / 500 500 / 500 Balance 2512.9 / 2512.9 1866 / 1866 2651 / 2651 General: Alert, Cooperative, No apparent distress HEENT: Atraumatic, Normocephalic Neck: No Nodes, Thyroid Normal Size and Texture Lungs: Clear to auscultation, Normal air movement, No rhonchi, No wheeze Cardiovascular: Regular rate, Regular Rhythm, Normal S1, Normal S2, No murmurs Abdomen: Bowel Sounds Present, Soft, Non Tender, Non-Distended, No Hepato- splenomegaly Extremities: No edema, No Calf Tenderness Skin: No rashes, No breakdown Musculoskeletal: No Tenderness to Palpation of Joints or Extremities, No Muscle Wasting Psych/Mental Status: Normal Affect, Appropriate Laboratory Results 08/13/17 09:31: POC Glucose 266 H 08/13/17 11:36: POC Glucose 327 H 08/13/17 14:10: Sodium 157 H, Potassium 3.5, Chloride 122 H, Carbon Dioxide 29.0 , Anion Gap 6, BUN 20 H, Creatinine 0.93, Estim Creat Clear Calc 72.53, Est GFR (MDRD) Af Amer 103, Est GFR (MDRD) Non-Af 86, BUN/Creatinine Ratio 21.5 H, Glucose 348 H, Calcium 8.4 L 08/13/17 16:00: POC Glucose 282 H 08/13/17 21:21: POC Glucose 436 H 08/14/17 06:09: WBC 9.3, RBC 4.76, Hgb 14.3, Hct 42.4, MCV 89.1, MCH 30.0, MCHC 33.7, RDW 14.6, RDW Differential 47.5 H, Plt Count 135 L, MPV 9.9, Immature Gran % (Auto) 0.100, Neut % (Auto) 79.3 H, Lymph % (Auto) 11.5 L, [place] % (Auto) 6.0, Eos % (Auto) 2.8, Baso % (Auto) 0.3, Absolute Neuts (auto) 7.4, Absolute Lymphs (auto) 1.07, Total Counted Not Reportable 08/14/17 06:09: Sodium 152 H, Potassium 3.4 L, Chloride 116 H, Carbon Dioxide 30.0, Anion Gap 6, BUN 16, Creatinine 0.71, Estim Creat Clear Calc 67.45, Est GFR (MDRD) Af Amer 142, Est GFR (MDRD) Non-Af 117, BUN/Creatinine Ratio 22.6 H, Glucose 269 H, Calcium 8.2 L, TSH 0.66 08/14/17 06:09: Cortisol Pending 08/14/17 06:40: POC Glucose 257 H Current Medications Dextrose (D50w Syringe) 0 gm IV X1 PRN; Protocol PRN Reason: Hypoglycemia Enoxaparin Sodium (Lovenox) 30 mg SC DAILY@1000 [facility] Last Admin: 08/13/17 09:32 Dose: 30 mg Glucagon () 1 mg IM .X1 PRN PRN Reason: Hypoglycemia Insulin Aspart (Novolog Flexpen ([facility])) 0 units SC ACHS [facility] PRN Reason: Protocol Last Admin: 08/14/17 06:42 Dose: 4 units Insulin Detemir (Levemir ([facility])) 15 units SC BID [facility] Last Admin: 08/13/17 21:22 Dose: 15 units Morphine Sulfate (Morphine) 2 - 4 mg IV Q4H PRN PRN PRN Reason: MOD-SEVERE PAIN (4-10/10) Ondansetron HCl (Zofran) 4 mg IV Q8H PRN PRN PRN Reason: NAUSEA Sodium Chloride () 5 - 30 ml IV UD PRN PRN Reason: SALINE FLUSH Last Admin: 08/11/17 21:34 Dose: 20 ml Assessment/Plan Active and Suspected Problems Hypernatremia (Acute) DKA (diabetic ketoacidoses) (Acute) 1. Diabetic ketoacidosis * Resolved * Patient back on Levemir instead of 30 units daily is on 15 twice daily. Additionally patient is on sliding scale insulin. * Sugars are in the 200s. Will monitor and make further adjustments as patient diet has been advanced. * Hopefully with the discontinuation of the D5 water that his blood sugars will improve. Remained to be seen how much more improved than what further adjustments may need to be made to his insulin regimen. 2. Hypernatremia * Patient's initial sodium was 140 but this may been artificially low given the hyperglycemia he experience. Subsequently, spent 150s and now at its highest at 162. * Greatly improved today, down to 152. We will Hep-Lock IV and monitor. 3. Dysphagia * On nectar thickened liquids by hawk. Continue with speech therapy. 4. DVT prophylaxis with low molecular weight heparin. Code Visit Inpatient E&M: [id number] Subs Hosp L2
[2017-08-14] MEDS: Enoxaparin 30 MG/0.3 ML Syringe SC (09:52)
[2017-08-14 11:51] LABS: Bedside Glucose 414 mg/dL (70-110)
[2017-08-14 14:43] VITALS: BP 153/72; PULSE 97; RESP 18; TEMP 36.7; O2SAT 98
[2017-08-14 16:51] LABS: Bedside Glucose 314 mg/dL (70-110)
[2017-08-14 20:55] VITALS: BP 144/60; PULSE 91; RESP 18; TEMP 37.8; O2SAT 93
[2017-08-14 21:06] LABS: Bedside Glucose 338 mg/dL (70-110)
[2017-08-15 02:22] VITALS: O2SAT 92
[2017-08-15 02:25] VITALS: BP 159/80; PULSE 89; RESP 18; TEMP 36.9; O2SAT 92
[2017-08-15 06:31] LABS: Anion Gap 6 (5-15); BUN 19 mg/dL (7-18); BUN/Creat Ratio 26.6 RATIO (10-20); Calcium,Total 8.7 mg/dL (8.5-10.1); Chloride 109 mmol/L (98-107); Creatinine, Serum 0.71 mg/dL (0.70-1.30); EST Glomerular Filtration Rate 116 mL/min (>60); Est Glom Filt Rate - Afr Amer 140 mL/min (>60); Estimated Creatinine Clearance 67.45 ml/min; Glucose 196 mg/dL (74-106); Magnesium 2.1 mg/dL (1.6-2.6); Potassium 3.5 mmol/L (3.5-5.1); Sodium Level 146 mmol/L (136-145)
[2017-08-15 06:41] LABS: Bedside Glucose 198 mg/dL (70-110)
[2017-08-15 08:25] VITALS: BP 126/67; PULSE 89; RESP 18; TEMP 37.2; O2SAT 93
--- NOTE | 2017-08-15 08:36 | PCM.PN.HOSP ---
Patient Problems: Active and Suspected Problems Dysphagia (Acute) Hypernatremia (Acute) DKA (diabetic ketoacidoses) (Acute) Subjective: Feeling good today. no new complaints. Vitals/I&O's: Vital Signs Temp Pulse Resp BP Pulse Ox 36.9 C 89 18 159/80 H 92 08/15/17 02:25 08/15/17 02:25 08/15/17 02:25 08/15/17 02:25 08/15/17 02:25 Oxygen Delivery Method Room Air Weight: 80.6 kg Body Mass Index (BMI) 26.2 Finger Stick Blood Glucose 242 Intake and Output for Last 24 Hours 08/13/17 08/14/17 08/15/17 23:59 23:59 23:59 Intake Total 2366 / 2366 4051 / 4051 240 / 240 Output Total 500 / 500 1300 / 1300 700 / 700 Balance 1866 / 1866 2751 / 2751 -460 / -460 General: Alert, Cooperative, No apparent distress HEENT: Atraumatic, Normocephalic Neck: No Nodes, Thyroid Normal Size and Texture Lungs: Clear to auscultation, Normal air movement, No rhonchi, No wheeze Cardiovascular: Regular rate, Regular Rhythm, Normal S1, Normal S2 Abdomen: Bowel Sounds Present, Soft, Non Tender, Non-Distended Extremities: No edema, No Calf Tenderness Psych/Mental Status: Normal Affect, Appropriate Laboratory Results 08/14/17 06:09: Cortisol 19.10 08/14/17 11:39: POC Glucose 414 H 08/14/17 16:38: POC Glucose 314 H 08/14/17 20:53: POC Glucose 338 H 08/15/17 05:45: Sodium 146 H, Potassium 3.5, Chloride 109 H, Carbon Dioxide 31.0, Anion Gap 6, BUN 19 H, Creatinine 0.71, Estim Creat Clear Calc 67.45, Est GFR (MDRD) Af Amer 140, Est GFR (MDRD) Non-Af 116, BUN/Creatinine Ratio 26.6 H, Glucose 196 H, Calcium 8.7, Magnesium 2.1 08/15/17 06:29: POC Glucose 198 H Current Medications Dextrose (D50w Syringe) 0 gm IV X1 PRN; Protocol PRN Reason: Hypoglycemia Enoxaparin Sodium (Lovenox) 30 mg SC DAILY@1000 [facility] Last Admin: 08/14/17 09:52 Dose: 30 mg Glucagon () 1 mg IM .X1 PRN PRN Reason: Hypoglycemia Insulin Aspart (Novolog Flexpen ([facility])) 8 units SC TIDAC [facility] PRN Reason: Protocol Insulin Detemir (Levemir ([facility])) 22 units SC BID [facility] Morphine Sulfate (Morphine) 2 - 4 mg IV Q4H PRN PRN PRN Reason: MOD-SEVERE PAIN (4-10/10) Ondansetron HCl (Zofran) 4 mg IV Q8H PRN PRN PRN Reason: NAUSEA Sodium Chloride () 5 - 30 ml IV UD PRN PRN Reason: SALINE FLUSH Last Admin: 08/11/17 21:34 Dose: 20 ml Assessment/Plan Active and Suspected Problems Dysphagia (Acute) Hypernatremia (Acute) DKA (diabetic ketoacidoses) (Acute) 1. Diabetic ketoacidosis Resolved Patient back on Levemir instead of 30 units daily is on 22 twice daily. Change novolog to 8 units scheduled. Sugars are in the 300s. 2. Hypernatremia Patient's initial sodium was 140 but this may been artificially low given the hyperglycemia he experience. Subsequently, spent 150s and now at its highest at 162. Greatly improved today, down to 146. 3. Dysphagia On nectar thickened liquids by hawk. Continue with speech therapy. 4. DVT prophylaxis with low molecular weight heparin. 5. Debility: pt declining SNF and HHC. Outpt PT/OT/ST. Apparently, has a good support network at home.
--- NOTE | 2017-08-15 08:39 | PN_ITS ---
Patient Problems: Active and Suspected Problems Dysphagia (Acute) Hypernatremia (Acute) DKA (diabetic ketoacidoses) (Acute) Subjective: Feeling good today. no new complaints. Vitals/I&O's: Vital Signs Temp Pulse Resp BP Pulse Ox 36.9 C 89 18 159/80 H 92 08/15/17 02:25 08/15/17 02:25 08/15/17 02:25 08/15/17 02:25 08/15/17 02:25 Oxygen Delivery Method Room Air Weight: 80.6 kg Body Mass Index (BMI) 26.2 Finger Stick Blood Glucose 242 Intake and Output for Last 24 Hours 08/13/17 08/14/17 08/15/17 23:59 23:59 23:59 Intake Total 2366 / 2366 4051 / 4051 240 / 240 Output Total 500 / 500 1300 / 1300 700 / 700 Balance 1866 / 1866 2751 / 2751 -460 / -460 General: Alert, Cooperative, No apparent distress HEENT: Atraumatic, Normocephalic Neck: No Nodes, Thyroid Normal Size and Texture Lungs: Clear to auscultation, Normal air movement, No rhonchi, No wheeze Cardiovascular: Regular rate, Regular Rhythm, Normal S1, Normal S2 Abdomen: Bowel Sounds Present, Soft, Non Tender, Non-Distended Extremities: No edema, No Calf Tenderness Psych/Mental Status: Normal Affect, Appropriate Laboratory Results 08/14/17 06:09: Cortisol 19.10 08/14/17 11:39: POC Glucose 414 H 08/14/17 16:38: POC Glucose 314 H 08/14/17 20:53: POC Glucose 338 H 08/15/17 05:45: Sodium 146 H, Potassium 3.5, Chloride 109 H, Carbon Dioxide 31.0 , Anion Gap 6, BUN 19 H, Creatinine 0.71, Estim Creat Clear Calc 67.45, Est GFR (MDRD) Af Amer 140, Est GFR (MDRD) Non-Af 116, BUN/Creatinine Ratio 26.6 H, Glucose 196 H, Calcium 8.7, Magnesium 2.1 08/15/17 06:29: POC Glucose 198 H Current Medications Dextrose (D50w Syringe) 0 gm IV X1 PRN; Protocol PRN Reason: Hypoglycemia Enoxaparin Sodium (Lovenox) 30 mg SC DAILY@1000 [facility] Last Admin: 08/14/17 09:52 Dose: 30 mg Glucagon () 1 mg IM .X1 PRN PRN Reason: Hypoglycemia Insulin Aspart (Novolog Flexpen ([facility])) 8 units SC TIDAC [facility] PRN Reason: Protocol Insulin Detemir (Levemir ([facility])) 22 units SC BID [facility] Morphine Sulfate (Morphine) 2 - 4 mg IV Q4H PRN PRN PRN Reason: MOD-SEVERE PAIN (4-10/10) Ondansetron HCl (Zofran) 4 mg IV Q8H PRN PRN PRN Reason: NAUSEA Sodium Chloride () 5 - 30 ml IV UD PRN PRN Reason: SALINE FLUSH Last Admin: 08/11/17 21:34 Dose: 20 ml Assessment/Plan Active and Suspected Problems Dysphagia (Acute) Hypernatremia (Acute) DKA (diabetic ketoacidoses) (Acute) 1. Diabetic ketoacidosis * Resolved * Patient back on Levemir instead of 30 units daily is on 22 twice daily. Change novolog to 8 units scheduled. * Sugars are in the 300s. 2. Hypernatremia * Patient's initial sodium was 140 but this may been artificially low given the hyperglycemia he experience. Subsequently, spent 150s and now at its highest at 162. * Greatly improved today, down to 146. 3. Dysphagia * On nectar thickened liquids by hawk. Continue with speech therapy. 4. DVT prophylaxis with low molecular weight heparin. 5. Debility: pt declining SNF and HHC. Outpt PT/OT/ST. Apparently, has a good support network at home.
--- NOTE | 2017-08-15 08:41 | PCM.DC ---
- Discharge Diagnoses Current Active Problems: Current Active and Chronic Problems Dysphagia (Acute) Hypernatremia (Acute) DKA (diabetic ketoacidoses) (Acute) You will use the following diet at home:: Calorie/Carbohydrate Controlled (specify 1200, 1400, etc) - 1800 kcal/day, Other - supervised. seated upright. Your food should be the consistency of: Mechanical soft (ground) Your liquids should be the consistency of: [place] Thick Discharge Activity: Return to Normal Activity Call your doctor if you observe: Fever of 101 or Higher, Shortness of breath Instructions: What Is Type 2 Diabetes?, How to Check Your Blood Sugar, Using Injected Insulin, Types of Insulin, Diabetes: Understanding Carbohydrates, Eating Out When You Have Diabetes, Diabetes: Keeping Feet Healthy, Diabetes: Sick-Day Plan, Diabetes: Understanding Carbohydrates, Fats, and Protein Allergies/Adverse Reactions: Allergies No Known Allergies Allergy (Verified 08/11/17 09:49) Medications to take at Discharge Insulin Aspart [Novolog Flexpen] 8 units SC TIDAC #1 flexpen 08/15/17 Insulin Detemir [Levemir FlexPen] 22 units SC BID #1 insuln.pen 08/15/17 The following prescriptions were given: Insulin Aspart [Novolog Flexpen] 8 units SC TIDAC #1 flexpen Insulin Detemir [Levemir FlexPen] 22 units SC BID #1 insuln.pen Primary Care Physician: Jordin Malcolm,Out of [NON-STAFF] - Within 2 Weeks Proposed Discharge Date: 08/15/17
--- NOTE | 2017-08-15 08:46 | DCINST_ITS ---
- Discharge Diagnoses Current Active Problems: Current Active and Chronic Problems Dysphagia (Acute) Hypernatremia (Acute) DKA (diabetic ketoacidoses) (Acute) You will use the following diet at home:: Calorie/Carbohydrate Controlled ( specify 1200, 1400, etc) - 1800 kcal/day, Other - supervised. seated upright. Your food should be the consistency of: Mechanical soft (ground) Your liquids should be the consistency of: [place] Thick Discharge Activity: Return to Normal Activity Call your doctor if you observe: Fever of 101 or Higher, Shortness of breath Instructions: What Is Type 2 Diabetes?, How to Check Your Blood Sugar, Using Injected Insulin, Types of Insulin, Diabetes: Understanding Carbohydrates, Eating Out When You Have Diabetes, Diabetes: Keeping Feet Healthy, Diabetes: Sick-Day Plan, Diabetes: Understanding Carbohydrates, Fats, and Protein Allergies/Adverse Reactions: Allergies No Known Allergies Allergy (Verified 08/11/17 09:49) Medications to take at Discharge Insulin Aspart [Novolog Flexpen] 8 units SC TIDAC #1 flexpen 08/15/17 Insulin Detemir [Levemir FlexPen] 22 units SC BID #1 insuln.pen 08/15/17 The following prescriptions were given: Insulin Aspart [Novolog Flexpen] 8 units SC TIDAC #1 flexpen Insulin Detemir [Levemir FlexPen] 22 units SC BID #1 insuln.pen Primary Care Physician: Jordin Malcolm,Out of [NON-STAFF] - Within 2 Weeks Proposed Discharge Date: 08/15/17
--- NOTE | 2017-08-15 08:46 | PCM.DC.SUM ---
Discharge Date and Diagnosis - Problem List Patient Problems: Active and Suspected Problems Dysphagia (Acute) Hypernatremia (Acute) DKA (diabetic ketoacidoses) (Acute) Date of Admission: 08/11/17 Date of Discharge: 08/15/17 - Primary Discharge Diagnosis Active and Suspected Problems Dysphagia (Acute) Hypernatremia (Acute) DKA (diabetic ketoacidoses) (Acute) Hospital Course and Treatment Imaging Results: Clinical Impression(s) from Imaging Studies Chest X-Ray 08/11/17 09:52 IMPRESSION: Chronic interstitial changes, no superimposed acute pulmonary process Electronically Signed: Karel Hook MD at 11:18 EST , Service support , Operations: None Procedures: None Summary of Care Provided: The patient is a 67 year old M presents with weakness, nausea and elevated blood sugar. Patient was found to be in diabetic ketoacidosis. Patient was started on insulin drip and admitted to the ICU. Subsequently thereafter the T diabetic ketoacidosis resolved patient was transitioned over to Levemir plus sliding scale insulin. Blood sugars have remained high. Patient's Levemir will be changed from 30 units daily to 22 twice daily and then patient will also be on NovoLog 8 units with meals. Patient has done better in regards to his blood sugars but certainly still need to be further optimized. Patient was also noted to be hypernatremic with a sodium that got as high as 162. Patient was put on hypertonic IV fluids and sodium has subsequently come down to 146. Patient's IV fluids were discontinued yesterday and patient is still continue to show improvement of his sodium. Patient was noted to have issues with swallowing. Patient was seen by speech therapy who has recommended mechanical soft with nectar thickened liquids. Patient was seen by physical therapy who recommend [facility] facility. Patient and his family have declined [facility] facility or home health care. Patient will be instructed to follow-up with physical, occupational and speech therapy as outpatient. [] Discharge Diet: 1800 Calorie Control Diet Discharge Activity: Return to Normal Activity Call your doctor if you observe: Fever of 101 or Higher, Shortness of breath Home Medications: Medications to take at Discharge Insulin Aspart [Novolog Flexpen] 8 units SC TIDAC #1 flexpen 08/15/17 Insulin Detemir [Levemir FlexPen] 22 units SC BID #1 insuln.pen 08/15/17 Following Prescrptions Were Given to Patient: Insulin Aspart [Novolog Flexpen] 8 units SC TIDAC #1 flexpen Insulin Detemir [Levemir FlexPen] 22 units SC BID #1 insuln.pen Other Amb Orders: Occupational Therapy Eval Location: None Selected Physical Therapy Evaluation Location: None Selected Speech Therapy Evaluation Location: None Selected Primary Care Physician: [facility] Doctor,Out of [NON-STAFF] - Within 2 Weeks Patient Instructions: What Is Type 2 Diabetes?, How to Check Your Blood Sugar, Using Injected Insulin, Types of Insulin, Diabetes: Understanding Carbohydrates, Eating Out When You Have Diabetes, Diabetes: Keeping Feet Healthy, Diabetes: Sick-Day Plan, Diabetes: Understanding Carbohydrates, Fats, and Protein Disposition: Home Minutes spent on discharge:: 32 Patient Condition:: Fair Meaningful Use Info Meaningful Use Diagnoses (Choose all that apply): None applicable Code Visit Inpatient E&M: 47039 Disch Hosp
--- NOTE | 2017-08-15 08:50 | DS.PCM_ITS ---
Discharge Date and Diagnosis - Problem List Patient Problems: Active and Suspected Problems Dysphagia (Acute) Hypernatremia (Acute) DKA (diabetic ketoacidoses) (Acute) Date of Admission: 08/11/17 Date of Discharge: 08/15/17 - Primary Discharge Diagnosis Active and Suspected Problems Dysphagia (Acute) Hypernatremia (Acute) DKA (diabetic ketoacidoses) (Acute) Hospital Course and Treatment Imaging Results: Clinical Impression(s) from Imaging Studies Chest X-Ray 08/11/17 09:52 IMPRESSION: Chronic interstitial changes, no superimposed acute pulmonary process Electronically Signed: Karel Hook MD at 11:18 EST , Service support , Operations: None Procedures: None Summary of Care Provided: The patient is a 67 year old M presents with weakness, nausea and elevated blood sugar. Patient was found to be in diabetic ketoacidosis. Patient was started on insulin drip and admitted to the ICU. Subsequently thereafter the T diabetic ketoacidosis resolved patient was transitioned over to Levemir plus sliding scale insulin. Blood sugars have remained high. Patient's Levemir will be changed from 30 units daily to 22 twice daily and then patient will also be on NovoLog 8 units with meals. Patient has done better in regards to his blood sugars but certainly still need to be further optimized. Patient was also noted to be hypernatremic with a sodium that got as high as 162. Patient was put on hypertonic IV fluids and sodium has subsequently come down to 146. Patient's IV fluids were discontinued yesterday and patient is still continue to show improvement of his sodium. Patient was noted to have issues with swallowing. Patient was seen by speech therapy who has recommended mechanical soft with nectar thickened liquids. Patient was seen by physical therapy who recommend senior care facility. Patient and his family have declined senior care facility or home health care. Patient will be instructed to follow-up with physical, occupational and speech therapy as outpatient. [] Discharge Diet: 1800 Calorie Control Diet Discharge Activity: Return to Normal Activity Call your doctor if you observe: Fever of 101 or Higher, Shortness of breath Home Medications: Medications to take at Discharge Insulin Aspart [Novolog Flexpen] 8 units SC TIDAC #1 flexpen 08/15/17 Insulin Detemir [Levemir FlexPen] 22 units SC BID #1 insuln.pen 08/15/17 Following Prescrptions Were Given to Patient: Insulin Aspart [Novolog Flexpen] 8 units SC TIDAC #1 flexpen Insulin Detemir [Levemir FlexPen] 22 units SC BID #1 insuln.pen Other Amb Orders: Occupational Therapy Eval Location: None Selected Physical Therapy Evaluation Location: None Selected Speech Therapy Evaluation Location: None Selected Primary Care Physician: [facility] Doctor,Out of [NON-STAFF] - Within 2 Weeks Patient Instructions: What Is Type 2 Diabetes?, How to Check Your Blood Sugar, Using Injected Insulin, Types of Insulin, Diabetes: Understanding Carbohydrates , Eating Out When You Have Diabetes, Diabetes: Keeping Feet Healthy, Diabetes: Sick-Day Plan, Diabetes: Understanding Carbohydrates, Fats, and Protein Disposition: Home Minutes spent on discharge:: 32 Patient Condition:: Fair Meaningful Use Info Meaningful Use Diagnoses (Choose all that apply): None applicable Code Visit Inpatient E&M: 78067 Disch Hosp
[2017-08-15] MEDS: Enoxaparin 30 MG/0.3 ML Syringe SC (10:45)
[2017-08-15 11:20] LABS: Bedside Glucose 445 mg/dL (70-110)
[2017-08-15 11:25] VITALS: BP 118/74; PULSE 74; RESP 18; TEMP 37; O2SAT 98
== END 2017-08-15 11:24 | disposition home or self-care (01) | DRG 637 ==
LOC: ED 10:52 → ICU 12:25 → MS2 08-12 11:05
PROVIDERS: Admitting Provider Internal Medicine; Emergency Provider Emergency Medicine
DX: E11.10 Type 2 diabetes mellitus with ketoacidosis without coma (principal); G93.41 Metabolic encephalopathy; N17.9 Acute kidney failure, unspecified; E87.0 Hyperosmolality and hypernatremia; E11.65 Type 2 diabetes mellitus with hyperglycemia; E11.39 Type 2 diabetes mellitus with other diabetic ophthalmic complication; E86.0 Dehydration; R13.10 Dysphagia, unspecified; R74.8 Abnormal levels of other serum enzymes; Z91.19 Patient's noncompliance with other medical treatment and regimen; Z79.4 Long term (current) use of insulin; Z87.891 Personal history of nicotine dependence
CPT/HCPCS: 36415; 36600; 71045; 80048; 80053; 81001; 82009; 82533; 82803; 82962; 83036; 83605; 83735; 84443; 84484; 85025; 87641; 92526; 93005; 93306; 97116; 97162; 97166; 97530; 97802; 99285; J7030; J7040; J7120; A4216; J3490; J7799

== ENCOUNTER 2018-10-17 06:13 | Emergency (ER) | payer OTHER, SELFPAY ==
[2018-10-17 06:14] VITALS: BP 182/84; PULSE 98; RESP 18; TEMP 36.4; O2SAT 95; BMI 31.7
--- NOTE | 2018-10-17 07:05 | ED.VISSUMM ---
- ER Visit Summary Date of Service: 10/17/18 Chief Complaint: Vomiting History of Present Illness: The patient is a 68 M with vomiting. He has been ill for about 1 day. He reports 4 episodes of nonbloody nonbilious emesis. He can planes of feeling dizzy. He complains of generalized malaise. No fevers. No abdominal pain. No diarrhea. He is a diabetic. He had DKA last year and notes that this feels similar. His blood sugar was in the high 300s this morning. Physical Examination: Afebrile blood pressure 182/84 vitals otherwise unremarkable Moist mucous membranes Heart regular rate and rhythm Lungs are clear Abdomen soft nontender nondistended Alert Test Results: Pending Emergency Department Course and Treatment: At the time of this dictation I have ordered IV fluids and antiemetics. Laboratory studies for evaluation of possible DKA have been ordered including CBC CMP acetone VBG. We will also check a lipase. Patient will be signed out to the oncoming physician to follow-up on results and final disposition. Treatment Plan: [] Disposition: Pending labs and reevaluation. Impression: [] This note was generated with [employer] dictation software. It may contain incorrect words, spelling, and punctuation that were not noted in review of the chart prior to signing ED Disposition - Plan for ED Patient: [facility]: [facility] [Primary Care Provider] -
[2018-10-17] MEDS: 0.9% Normal Saline 1,000 ML 1000 ML IV (07:06)
[2018-10-17] MEDS: Ondansetron 4 MG/2 ML Vial IV (07:09)
[2018-10-17 07:21] LABS: Absolute Lymphocyte Count 0.64 X10^3/ul (0.83-4.51); Absolute Neutrophil Count 14.3 X10^3/uL (2.0-7.7); Basophil# 0.01 X10^3/uL; Basophil% 0.1 % (0-1); Hematocrit 47.1 % (40-54); Hemoglobin 16.3 g/dl (13.0-16.5); Lymphocyte # 0.64 X10^3/ul (4.0); Mean Corp Hgb Conc 34.6 g/gl (32-36); Mean Corpuscular Hgb 30.6 pg (27.0-32.0); Mean Corpuscular Volume 88.5 fL (80-94); Monocyte# 0.85 X10^3/uL; Monocyte% 5.4 % (0-10); Neutrophil % 90.4 % (47-70); Platelet Count 225 K/mm3 (150-450); RBC Distribution Width CV 12.8 % (11.6-14.6); Red Blood Count 5.32 M/mm3 (4.6-6.2); White Blood Count 15.8 K/mm3 (4.4-11.0)
[2018-10-17 07:21] LABS: Blood Gas Specimen Type VEN; SITE OTHER; VBG BASE EXCESS -5 mmol/L (-1.0-3.5); VBG Bicarbonate 22 mmol/L (22-26); VBG Oxygen Content 23 mmol/L (23-33); VBG PO2 30 mmHg (25-40); VBG SO2 51 % (50-70); VBG pCO2 44.8 mmHg (41-51); VBG pH 7.29 (7.32-7.42)
[2018-10-17 07:22] LABS: POSITIVE COUNT NO; POSITIVE DIFFERENTIAL NO; POSITIVE MORPHOLOGY NO
[2018-10-17 07:30] LABS: ALB/GLOB Ratio 1.5 RATIO (0.9-2.4); AST(SGOT) 11 U/L (15-37); Alanine Aminotransfer ALT/SGPT 26 U/L (16-61); Alkaline Phosphatase 79 U/L (45-117); Anion Gap 11 (5-15); BUN 24 mg/dL (7-18); BUN/Creat Ratio 24.1 RATIO (10-20); Calcium,Total 8.5 mg/dL (8.5-10.1); Chloride 105 mmol/L (98-107); Creatinine, Serum 0.99 mg/dL (0.70-1.30); EST Glomerular Filtration Rate 79 mL/min (>60); Est Glom Filt Rate - Afr Amer 96 mL/min (>60); Estimated Creatinine Clearance 67.17 ml/min; Globulin 2.7 g/dL (2.2-4.2); Glucose 342 mg/dL (74-106); Lipase 32 U/L (73-393); Potassium 4.7 mmol/L (3.5-5.1); Protein, Total 6.7 g/dL (6.4-8.2); Sodium Level 140 mmol/L (136-145)
--- NOTE | 2018-10-17 07:35 | CT_ITS ---
STUDY: CT ABDOMEN AND PELVIS WITH CONTRAST REASON FOR EXAM: Male, 68 years old. One day history of nausea and vomiting. Hyperglycemia. RADIATION DOSAGE (If Supplied By Facility): CTDIvol = ( 16.94 ) mGy, DLP = ( 1391.77 ) mGycm TECHNIQUE: Transaxial images were obtained from the dome of the diaphragm to the symphysis pubis with oral contrast. 100 IV/Oral Isovue 300 was administered. Sagittal and coronal images were reconstructed. Individualized dose optimization techniques were used for this CT. COMPARISON: None. FINDINGS: Minimal degree of bibasilar scarring and/or atelectasis coronary artery calcification. There is decreased attenuation of the liver consistent with steatosis. Distended gallbladder. Normal spleen. There is diffuse atrophy of the pancreas. Normal bilateral adrenal glands. Normal right kidney. Normal left kidney. There is a small hiatal hernia. Normal small intestine. There are multiple colonic diverticula consistent with diverticulosis. The appendix is visualized and appears normal. There is diffuse atherosclerotic calcification of the abdominal aorta and its major visceral branches, without a demonstrated aneurysm. Normal inferior vena cava. Normal retroperitoneum. The urinary bladder is markedly distended. There is enlargement of the prostate gland. It measures 5.2 cm x 4.2 cm. Central calcifications are seen. There is calcification of the vas deferens. This is seen in patients with diabetes. Small bilateral inguinal hernias containing fat. There are diffuse degenerative changes of the visualized lumbar spine. CT/Abdomen/Pelvis WITH Contrast IMPRESSION: Fatty infiltration of the liver. Distended gallbladder. Distention of the urinary bladder with prostatic enlargement. Electronically Signed: Jonas Tarango, at 10:09 EDT , Service support ,
[2018-10-17 08:45] VITALS: BP 161/74; PULSE 95; RESP 18; O2SAT 94
[2018-10-17 10:14] VITALS: BP 157/62; PULSE 95; RESP 19; O2SAT 93
--- NOTE | 2018-10-17 10:18 | ED.DEP ---
ED Disposition - Plan for ED Patient: Disposition: Home or Assisted Living Instructions: ED Nausea Vomiting Prescriptions: Ondansetron [Zofran Odt] 4 mg PO Q8H PRN PRN #10 tab PRN Reason: Nausea [facility]errals: [facility] [Primary Care Provider] -
[2018-10-17 10:45] VITALS: BP 152/98; PULSE 97; RESP 17; O2SAT 92
== END 2018-10-17 10:45 | disposition home or self-care (01) ==
PROVIDERS: Emergency Provider Emergency Medicine
DX: R11.2 Nausea with vomiting, unspecified (principal); E11.65 Type 2 diabetes mellitus with hyperglycemia; Z79.4 Long term (current) use of insulin
CPT/HCPCS: 74177; 80053; 82009; 82803; 83690; 85025; 96361; 96374; 99285; J7030; Q9967; A4216; J2405